=== PATIENT | male | born 1950 | race Caucasian/White ===

== ENCOUNTER 2017-01-28 16:13 | Inpatient (IN) | payer MEDICAID ==
[~2017-01-28] VITALS: Ht 167.6 cm; Wt 79.5 kg
[~2017-01-28 16:13] MED LIST: CARAFATE1 GM PO; FLO4 PO; FUROSEMIDE20 MG PO; HYDRO; LAC; LAC PO; LEVAQUIN750 MG PO; NOR10T PO; PROT40I PO; PROTONIX40 M1 PO
[2017-01-28 17:02] LABS: BASOPHIL % 0.9 % (0-2)
[2017-01-28 17:04] LABS: PLATELET COUNT 82 x10^3mcL (130-400); RED CELL DISTRIBUTION WIDTH 15.3 % (11.5-14.5)
[2017-01-28 17:10] LABS: CALCIUM 7.9 mg/dL (8.5-10.1); CARBON DIOXIDE 21.5 mmol/L (21-32); CREATININE SERUM 2.1 mg/dL (0.7-1.3)
[2017-01-28 17:15] LABS: BILIRUBIN TOTAL 0.55 mg/dL (0.20-1.00); TOTAL PROTEIN, SERUM 6.3 g/dL (6.4-8.2)
[2017-01-28 17:17] LABS: ALBUMIN 2.4 g/dL (3.4-5.0)
[2017-01-28] MEDS ORDERED: FEROSUL325 M1 PO (17:24)
[2017-01-28 18:53] LABS: T3 TOTAL 0.74 ng/mL
[2017-01-28 18:55] VITALS: BP 116/76
[2017-01-28 19:00] LABS: AMPHETAMINE QUAL UR NONE DETECTED (NEG <=1000)
[2017-01-28 19:02] LABS: MAGNESIUM 2.2 mg/dL (1.8-2.4)
[2017-01-28 19:03] LABS: CHOLESTEROL/HDL RATIO 1.7
[2017-01-28 19:10] LABS: FREE T4 1.13 ng/dL (0.76-1.46); FREE THYROXINE INDEX 2.4 ug/dL (1.4-4.5); T4(THYROXINE) 7.8 ug/dL (4.7-13.3)
[2017-01-28 19:25] LABS: PHOSPHOROUS 4.2 mg/dL (2.5-4.9)
[2017-01-28 20:12] VITALS: BP 126/72
[2017-01-28 21:09] VITALS: Ht 167.6 cm; Wt 79.5 kg
[2017-01-28 22:04] VITALS: BP 113/71
[2017-01-29 03:00] LABS: microscopic required? NO
[2017-01-29 03:27] LABS: urine erythrocyte NEGATIVE (NEGATIVE)
[2017-01-29 06:15] VITALS: BP 108/57
[2017-01-29 07:40] VITALS: BP 114/66
[2017-01-29 13:10] VITALS: BP 129/72
[2017-01-29 15:40] VITALS: BP 103/65
[2017-01-29 17:00] VITALS: BP 96/72
[2017-01-29 21:51] VITALS: BP 105/56
[2017-01-30 06:04] LABS: BASOPHIL % 0.8 % (0-2)
[2017-01-30 06:19] VITALS: BP 96/62
[2017-01-30 06:23] LABS: PLATELET COUNT 82 x10^3mcL (130-400); RED CELL DISTRIBUTION WIDTH 15.5 % (11.5-14.5)
[2017-01-30 06:28] LABS: CALCIUM 7.9 mg/dL (8.5-10.1); CREATININE SERUM 2.1 mg/dL (0.7-1.3); MAGNESIUM 1.9 mg/dL (1.8-2.4); PHOSPHOROUS 4.3 mg/dL (2.5-4.9); POTASSIUM SERUM 4.2 mmol/L (3.5-5.1)
[2017-01-30 07:51] VITALS: BP 96/58
[2017-01-30] MEDS ORDERED: ALD50 PO (09:14)
[2017-01-30] MEDS ORDERED: LASIX40 MG PO (09:14)
[2017-01-30 09:27] VITALS: BP 96/58
== END 2017-01-30 11:02 | disposition home or self-care (01) | DRG 280 ==
LOC: ED 16:13 → DU 17:16
PROVIDERS: Emergency Medicine; ADMIT Family Medicine
PROC: 0W9G3ZZ Drainage of Peritoneal Cavity, Percutaneous Approach (ICD-10-PCS; principal; 2017-01-29)
DX: K70.31 Alcoholic cirrhosis of liver with ascites (principal); N17.0 Acute kidney failure with tubular necrosis; E43 Unspecified severe protein-calorie malnutrition; E87.1 Hypo-osmolality and hyponatremia; E87.6 Hypokalemia; K21.9 Gastro-esophageal reflux disease without esophagitis; D64.9 Anemia, unspecified; F10.21 Alcohol dependence, in remission; Z68.28 Body mass index [BMI] 28.0-28.9, adult
CPT/HCPCS: 80307; 83880; 84439; C1729; J1940; J2001; J7030; Q0092

== ENCOUNTER 2017-04-10 18:03 | Emergency (ER) | payer MEDICAID ==
[~2017-04-10] VITALS: Ht 170.2 cm; Wt 70.5 kg
[~2017-04-10 18:03] MED LIST changes: +ALD50 PO; +FEROSUL325 M1 PO; +LASIX40 MG PO
[2017-04-10 19:27] LABS: BASOPHIL % 0.9 % (0-2); PLATELET COUNT 83 x10^3mcL (130-400); RED CELL DISTRIBUTION WIDTH 14.3 % (11.5-14.5)
[2017-04-10 19:44] LABS: BILIRUBIN TOTAL 0.6 mg/dL (0.20-1.00); CALCIUM 11.8 mg/dL (8.5-10.1); CARBON DIOXIDE 21.3 mmol/L (21-32); MAGNESIUM 2.1 mg/dL (1.8-2.4); POTASSIUM SERUM 3.8 mmol/L (3.5-5.1); TOTAL PROTEIN, SERUM 6.5 g/dL (6.4-8.2)
[2017-04-10 19:45] LABS: ALBUMIN 2.9 g/dL (3.4-5.0)
[2017-04-10 19:46] LABS: CREATININE SERUM 4.3 mg/dL (0.7-1.3)
[2017-04-10 20:39] LABS: UA SPECIFIC GRAVITY 1.015 (1.005-1.035); microscopic required? YES; urine erythrocyte TRACE (NEGATIVE)
[2017-04-10 22:33] VITALS: BP 105/73
== END 2017-04-10 22:33 | disposition home or self-care (01) ==
LOC: ED 18:03
PROVIDERS: Emergency Medicine
DX: R10.31 Right lower quadrant pain (principal); D61.818 Other pancytopenia; K74.60 Unspecified cirrhosis of liver; I12.9 Hypertensive chronic kidney disease with stage 1 through stage 4 chronic kidney disease, or unspecified chronic kidney disease; E11.22 Type 2 diabetes mellitus with diabetic chronic kidney disease; N18.9 Chronic kidney disease, unspecified; Z79.899 Other long term (current) drug therapy
CPT/HCPCS: J2270; J2405

== ENCOUNTER 2017-06-27 19:10 | Emergency (ER) | payer MEDICAID ==
[2017-06-27 20:55] VITALS: BP 118/63
== END 2017-06-27 20:55 | disposition home or self-care (01) ==
LOC: ED 19:10
DX: K40.90 Unilateral inguinal hernia, without obstruction or gangrene, not specified as recurrent (principal); I10 Essential (primary) hypertension; K74.60 Unspecified cirrhosis of liver; Z98.890 Other specified postprocedural states; Z79.899 Other long term (current) drug therapy